=== PATIENT | female | born 1980 | race American Indian/Alaskan Native ===

== ENCOUNTER 2022-02-14 20:09 | Emergency (ER) | payer SELFPAY ==
[2022-02-14 21:54] LABS: Alanine Aminotransferase 16 units/L (7-56); Albumin 4.1 g/dL (3.9-5); BUN/Creatinine Ratio 30; Basophils # (Auto) 0.1 K/mm3 (0.0-0.1); Basophils % (Auto) 1.3 % (0.0-1.8); Blood Urea Nitrogen 15 mg/dL (7-17); Calcium 9.4 mg/dL (8.4-10.2); Eosinophils # (Auto) 0.1 K/mm3 (0.0-0.4); Eosinophils % (Auto) 1.5 % (0.0-4.3); Hemoglobin 12.6 gm/dl (10.1-14.3); Hemolysis Index 4; Lymphocytes # (Auto) 1.8 K/mm3 (1.2-5.4); Lymphocytes % (Auto) 28.9 % (13.4-35.0); Mean Corpuscular HGB Conc 32 % (30-34); Mean Corpuscular Volume 78 fl (79-97); Monocytes # (Auto) 0.6 K/mm3 (0.0-0.8); Monocytes % (Auto) 9.4 % (0.0-7.3); Platelet Count 364 K/mm3 (140-440); Red Blood Count 4.97 M/mm3 (3.65-5.03); Red Cell Distribution Width 19.3 % (13.2-15.2)
--- NOTE | 2022-02-15 01:31 | XRay Report ---
CHEST 1 VIEW 02/15/2022 1:26 AM INDICATION / CLINICAL INFORMATION: dyspnea. COMPARISON: None available. FINDINGS: SUPPORT DEVICES: None. HEART / MEDIASTINUM: No significant abnormality. LUNGS / PLEURA: No significant pulmonary or pleural abnormality. No pneumothorax. ADDITIONAL FINDINGS: No significant additional findings. IMPRESSION: No acute abnormality. Signer Name: Omar Jameson MD Signed: 02/15/2022 1:26 AM Workstation Name: [id number]
[2022-02-15 02:18] LABS: Bilirubin,Urine NEG (Negative); Blood,Urine MOD (Negative); Color,Urine Yellow (Yellow); Protein,Urine <15 mg/dL mg/dL (Negative); Urobilinogen,Urine < 2.0 mg/dL (<2.0)
[2022-02-15 02:20] LABS: Bacteria,Urine 1+ /HPF (Negative); Mucus,Urine FEW /HPF
--- NOTE | 2022-02-15 04:30 | Emergency Department Report ---
ED General Adult HPI - General Chief complaint: Weakness Stated complaint: WEAK,DARK GOLD URINE Source: patient Mode of arrival: Ambulatory Limitations: No Limitations - History of Present Illness Initial comments: Patient is a 41-year-old -Citizen Of [place] female with a history of asthma and is not on any medications and who presented to the ED with complaint of acute onset persistent diffuse body aches and pains, generalized weakness, generalized fatigue, shortness of breath, mild dry cough and chest tightness for the last 1 week. Patient states that in the last 2 days she felt more fatigue with lack of appetite. Patient states that no one else at home or at work has had similar symptoms. Patient denies dizziness, syncope, lightheadedness, headache, nausea and vomiting or diarrhea, abdominal pain, dysuria, urinary frequency and urgency, wheezing, sore throat, back pain or neck pain. MD Complaint: Generalized weakness, fatigue, nausea, chest pain, shortness of breath -: week(s) (1) Location: chest Radiation: non-radiation Severity scale (0 -10): 7 Quality: aching, dull Consistency: intermittent Improves with: none Worsens with: rest Associated Symptoms: denies other symptoms, chest pain (Pressure), loss of a ppetite, malaise, shortness of breath, weakness. denies: confusion, cough, diaphoresis, fever/chills, headaches, nausea/vomiting, rash, seizure, syncope Treatments Prior to Arrival: none - Related Data Previous Rx's Medication Instructions Recorded Last Taken Type Albuterol Sulfate [Proventil Hfa] 1 - 2 puff IH Q6H PRN #1 inh 02/15/22 Unknown Rx hydrOXYzine PAMOATE [Vistaril] 25 mg PO Q8HR PRN #30 capsule 02/15/22 Unknown Rx predniSONE [Deltasone] 40 mg PO QDAY #10 tab 02/15/22 Unknown Rx Allergies Allergy/AdvReac Type Severity Reaction Status Date / Time No Known Allergies Allergy Unverified 02/14/22 21:06 ED Review of Systems ROS: Stated complaint: WEAK,DARK GOLD URINE Other details as noted in HPI Constitutional: malaise, weakness. denies: chills, fever Eyes: denies: eye pain, eye discharge, vision change ENT: denies: ear pain, throat pain, dental pain, hearing loss, congestion Respiratory: shortness of breath. denies: cough, wheezing Cardiovascular: chest pain (Chest tightness). denies: palpitations Endocrine: no symptoms reported Gastrointestinal: nausea. denies: abdominal pain, vomiting, diarrhea Genitourinary: denies: urgency, dysuria, discharge Musculoskeletal: myalgia. denies: back pain, joint swelling, arthralgia Skin: denies: rash, lesions Neurological: denies: headache, weakness, paresthesias Psychiatric: anxiety. denies: depression Hematological/Lymphatic: denies: easy bleeding, easy bruising ED Past Medical Hx - Past Medical History Hx Hypertension: Yes (Preclampsia) Hx Asthma: Yes - Social History Smoking Status: Never Smoker - Medications Home Medications: Home Medications Medication Instructions Recorded Confirmed Last Taken Type Albuterol Sulfate [Proventil Hfa] 1 - 2 puff IH Q6H PRN #1 inh 02/15/22 Unknown Rx hydrOXYzine PAMOATE [Vistaril] 25 mg PO Q8HR PRN #30 capsule 02/15/22 Unknown Rx predniSONE [Deltasone] 40 mg PO QDAY #10 tab 02/15/22 Unknown Rx ED Physical Exam - General Limitations: No Limitations General appearance: alert, in no apparent distress - Head Head exam: Present: atraumatic, normocephalic, normal inspection - Eye Eye exam: Present: normal appearance, PERRL, EOMI Pupils: Present: normal accommodation - ENT ENT exam: Present: normal exam, normal orophraynx, mucous membranes moist, TM's normal bilaterally, normal external ear exam - Neck Neck exam: Present: normal inspection, full ROM. Absent: tenderness - Respiratory Respiratory exam: Present: normal lung sounds bilaterally. Absent: respiratory distress, wheezes, rales, rhonchi, stridor, chest wall tenderness, accessory muscle use, decreased breath sounds, prolonged expiratory - Cardiovascular Cardiovascular Exam: Present: regular rate, normal rhythm, normal heart sounds. Absent: systolic murmur, diastolic murmur, rubs, gallop - GI/Abdominal GI/Abdominal exam: Present: soft, normal bowel sounds. Absent: tenderness, guarding, rebound, hyperactive bowel sounds, hypoactive bowel sounds, mass - Extremities Exam Extremities exam: Present: normal inspection, full ROM, normal capillary refill - Back Exam Back exam: Present: normal inspection, full ROM. Absent: tenderness, CVA tenderness (R), CVA tenderness (L), muscle spasm, paraspinal tenderness, vertebral tenderness, rash noted - Neurological Exam Neurological exam: Present: alert, oriented X3, CN II-XII intact, normal gait, reflexes normal - Psychiatric Psychiatric exam: Present: normal affect, normal mood, anxious - Skin Skin exam: Present: warm, dry, intact, normal color. Absent: rash ED Course Vital Signs 02/14/22 02/14/22 20:58 20:59 Temperature 98.9 F Pulse Rate 97 H Respiratory 14 Rate Blood Pressure 154/85 O2 Sat by Pulse 97 Oximetry ED Medical Decision Making - Lab Data Result diagrams: 02/14/22 21:13 02/14/22 21:13 - Radiology Data Radiology results: report reviewed, [place] [address] XRay Report Signed Patient: ZEYNEP DARBY MR#: [id number] : 1980 Acct:[id number] Age/Sex: 41 / F ADM Date: 02/14/22 Loc: ED Attending Dr: Ordering Physician: JOSE PATEL Date of Service: 02/15/22 Procedure(s): XR chest 1V ap Accession Number(s): [id number] cc: JOSE PATEL Fluoro Time In Minutes: CHEST 1 VIEW 02/15/2022 1:26 AM INDICATION / CLINICAL INFORMATION: dyspnea. COMPARISON: None available. FINDINGS: SUPPORT DEVICES: None. HEART / MEDIASTINUM: No significant abnormality. LUNGS / PLEURA: No significant pulmonary or pleural abnormality. No pneumothorax. ADDITIONAL FINDINGS: No significant additional findings. IMPRESSION: No acute abnormality. Signer Name: Omar Jameson MD Signed: 02/15/2022 1:26 AM Workstation Name: [id number] Transcribed By: ES Dictated By: Omar Jameson MD Electronically Authenticated By: Omar Jameson MD Signed Date/Time: 02/15/22125 DD/ 5 TD/TT: - Medical Decision Making This is a 41-year-old -Citizen Of [place] female with a history of asthma and is not on any medications and who presented to the ED with complaint of acute onset persistent diffuse body aches and pains, generalized weakness, generalized fatigue, shortness of breath, mild dry cough and chest tightness for the last 1 week. Patient states that in the last 2 days she felt more fatigue with lack of appetite. Patient states that no one else at home or at work has had similar symptoms. In the ED, patient is alert and oriented x3 and is not in any distress. All lab test results were reviewed and are all nonactionable. Chest x-ray showed no acute cardiopulmonary abnormalities or pneumonitis. Based on the history and physical exam findings and the test results, patient symptoms are likely due to anxiety or mild asthma exacerbation. Patient was therefore discharged home on medications and advised to follow-up with her primary care physician in 5 to 7 days for reevaluation. Patient was advised return to the ED immediately if symptoms get worse. - Differential Diagnosis Anxiety; asthma; pneumonia; anemia; ACS Critical care attestation.: If time is entered above; I have spent that time in minutes in the direct care of this critically ill patient, excluding procedure time. ED Disposition Clinical Impression: Anxiety as acute reaction to exceptional stress, Shortness of breath, Asthma due to seasonal allergies Disposition: 01 HOME / SELF CARE / HOMELESS Is pt being admited?: No Does the pt Need Aspirin: No Condition: Stable Instructions: Asthma (ED), Shortness of Breath, Adult, [id number], Generalized Anxiety Disorder, Adult, Asthma, Adult, [id number] Additional Instructions: All lab test results were reviewed and are all nonactionable. Chest x-ray showed no acute cardiopulmonary abnormalities or pneumonitis. Therefore take medication as advised, drink plenty of fluids, follow-up with your primary care physician in 5 to 7 days for reevaluation. Return to the ED immediately if symptoms get worse Prescriptions: predniSONE [Deltasone] 40 mg PO QDAY #10 tab Albuterol Sulfate [Proventil Hfa] 1 - 2 puff IH Q6H PRN #1 inh PRN Reason: Shortness Of Breath hydrOXYzine PAMOATE [Vistaril] 25 mg PO Q8HR PRN #30 capsule PRN Reason: Anxiety Referrals: TOM GONZALES MD [Primary Care Provider] - 3-5 Days Forms: Work/School Release Form(ED) Time of Disposition: 04:31 Print Language: GREENLANDIC
[2022-02-15 05:08] VITALS: BP 144/81
== END 2022-02-15 05:08 | disposition home or self-care (01) ==
LOC: ED 20:09
DX: R06.02 Shortness of breath (principal); J45.909 Unspecified asthma, uncomplicated; F41.1 Generalized anxiety disorder; F43.0 Acute stress reaction; I10 Essential (primary) hypertension; Z79.899 Other long term (current) drug therapy
CPT/HCPCS: 36415; 71045; 80053; 81001; 84703; 85025; 99283